=== PATIENT | female | born 1965 | race Caucasian/White ===

== ENCOUNTER → 2017-07-25 12:36 | Outpatient (CLI) | payer BC ==
[2017-07-25 13:51] LABS: T4 THYROXIN - FREE 0.86 ng/dL (0.76-1.46); THYROID STIMULATING HORMONE 3.1 uIU/mL (0.36-3.74)
== END | disposition home or self-care (01) ==
LOC: D.LAB 12:36
PROVIDERS: Obstetrics & Gynecology Gynecology
DX: R53.83 Other fatigue (principal); N95.1 Menopausal and female climacteric states

== ENCOUNTER 2017-11-08 09:14 | Observation (INO) | payer BC ==
[~2017-11-08] VITALS: Ht 157.5 cm; Wt 54.4 kg
[2017-11-08 09:48] LABS: BASOPHILS 0.2 % (0-2); EOSINOPHILS 0.9 % (0-7); HEMATOCRIT 40.7 % (36.0-48.0); HEMOGLOBIN 13.9 g/dL (12-16); IMMATURE GRANULOCYTES 0.3 % (0-5); LYMPHOCYTES 12.6 % (15-50); MCH 31.3 pg (26.0-34.0); MCHC 34.2 g/dL (31.0-37.0); MCV 91.7 fL (80.0-100.0); MEAN PLATELET VOLUME 10.3 fL (7.4-10.4); PLATELET COUNT 166 10x3/uL (130-400); RBC 4.44 10x6/uL (4.00-5.40); RDW 12.1 % (11.5-14.5); WBC 10.9 10x3/uL (4.8-10.8)
[2017-11-08 10:08] LABS: ALBUMIN 3.7 g/dL (3.4-5.0); ALKALINE PHOSPHATASE 61 U/L (46-116); ALT (SGPT) 21 U/L (10-68); CALC OSMOLALITY 276 mosm/kg (275-300); CALCIUM 9.2 mg/dL (8.5-10.1); CARBON DIOXIDE 28.6 mmol/L (21.0-32.0); CHLORIDE - SERUM 102 mmol/L (98-107); CREATININE - SERUM 0.8 mg/dL (0.6-1.3); GLUCOSE 111 mg/dL (74-106); POTASSIUM - SERUM 3.1 mmol/L (3.5-5.1); SODIUM 139 mmol/L (136-145); UREA NITROGEN 7 mg/dL (7-18); eGFR NON AFRICAN AMERICAN 80 mL/min (90-120)
[2017-11-08 10:59] LABS: APPEARANCE HAZY (CLEAR); BILIRUBIN NEGATIVE (NEGATIVE); COLOR YELLOW (YELLOW); GLUCOSE NEGATIVE (NEGATIVE); KETONE MODERATE mg/dL (NEGATIVE); NITRITE NEGATIVE (NEGATIVE); PROTEIN NEGATIVE (NEGATIVE); UROBILINOGEN NORMAL (NORMAL)
[2017-11-08 15:22] LABS: GLUCOSE - CSF 64 MG/DL (40-75); PROTEIN - CSF 39 MG/DL (12-60)
[2017-11-08 15:27] LABS: APPEARANCE - CSF CLEAR; RBC - CSF 0 cmm (0-0)
[2017-11-08 20:00] VITALS: BP 117/68
[2017-11-09 02:20] VITALS: BP 101/57
[2017-11-09 02:32] VITALS: BMI 22.0
[2017-11-09 05:03] VITALS: BP 108/63
[2017-11-09 06:27] LABS: BASOPHILS 0.1 % (0-2); EOSINOPHILS 1.1 % (0-7); HEMATOCRIT 35.3 % (36.0-48.0); HEMOGLOBIN 11.6 g/dL (12-16); IMMATURE GRANULOCYTES 0.1 % (0-5); LYMPHOCYTES 16.4 % (15-50); MCH 30.1 pg (26.0-34.0); MCHC 32.9 g/dL (31.0-37.0); MCV 91.7 fL (80.0-100.0); MEAN PLATELET VOLUME 9.6 fL (7.4-10.4); MONOCYTES 9.6 % (2-11); NEUTROPHILS 72.7 % (40-80); PLATELET COUNT 195 10x3/uL (130-400); RBC 3.85 10x6/uL (4.00-5.40); RDW 12.1 % (11.5-14.5)
[2017-11-09 06:32] LABS: WBC 7.1 10x3/uL (4.8-10.8)
[2017-11-09 06:57] LABS: ALKALINE PHOSPHATASE 42 U/L (46-116); BILIRUBIN - TOTAL 0.41 mg/dL (0.2-1.3); CALC OSMOLALITY 282 mosm/kg (275-300); CALCIUM 7.7 mg/dL (8.5-10.1); CARBON DIOXIDE 25.4 mmol/L (21.0-32.0); CHLORIDE - SERUM 107 mmol/L (98-107); CREATININE - SERUM 0.6 mg/dL (0.6-1.3); GLUCOSE 97 mg/dL (74-106); SODIUM 143 mmol/L (136-145); UREA NITROGEN 6 mg/dL (7-18); eGFR NON AFRICAN AMERICAN > 90 mL/min (90-120)
[2017-11-09 07:01] LABS: ALBUMIN 2.5 g/dL (3.4-5.0); ALT (SGPT) 12 U/L (10-68); PROTEIN - SERUM 5.2 g/dL (6.4-8.2)
[2017-11-09 08:02] VITALS: BP 109/65
[2017-11-09 12:00] VITALS: BP 113/72
[2017-11-09 12:59] VITALS: Ht 157.5 cm; Wt 54.4 kg
[2017-11-09 13:22] LABS: % SATURATION 7 % (15-55); IRON 15 ug/dl (35-150); TOTAL IRON BIND CAPACITY 193 ug/dl (260-445); UNSAT IRON BIND CAPACITY 178 ug/dl (150-375)
[2017-11-09 16:25] LABS: T4 THYROXIN - FREE 1.03 ng/dL (0.76-1.46); THYROID STIMULATING HORMONE 1.5 uIU/mL (0.36-3.74)
[2017-11-09 16:35] VITALS: BP 112/73
[2017-11-09 20:30] VITALS: BP 117/68
[2017-11-10 00:52] VITALS: BP 124/74
[2017-11-10 03:58] VITALS: BP 95/56
[2017-11-10 08:29] VITALS: BP 118/70
[2017-11-10] MEDS ORDERED: FLAGYL500 MG PO (12:12)
[2017-11-10] MEDS ORDERED: LEVAQUIN500 MG PO (12:12)
[2017-11-10 12:51] VITALS: BP 120/72
[2017-11-11 08:18] LABS: FOLATE (FOLIC ACID) - SERUM 14.5 ng/mL (>3.0)
[2017-11-11 11:17] LABS: ANA REFLEX - DIRECT Negative (Negative)
[2017-11-14 14:14] LABS: ANTIGLIADIN IGA 1 units (0-19); ANTIGLIADIN IGG 1 units (0-19)
== END 2017-11-10 14:34 | disposition home or self-care (01) ==
LOC: D.ER 09:14 → D.MS 18:36 → D.EDHOLD 18:36 → D.MS 18:36 → OBSVTIME 19:16 → D.MS 11-10 14:34
PROVIDERS: Family Medicine; Internal Medicine Gastroenterology; Internal Medicine Nephrology
DX: R19.7 Diarrhea, unspecified (principal); R10.9 Unspecified abdominal pain; D64.9 Anemia, unspecified; E87.6 Hypokalemia

== ENCOUNTER → 2017-12-23 08:49 | Outpatient (CLI) | payer BC ==
[2017-11-09 12:59] VITALS: BMI 21.9
[~2017-12-23 08:49] MED LIST: FLAGYL500 MG PO; LEVAQUIN500 MG PO
[2017-12-23 09:30] LABS: BASOPHILS 0.6 % (0-2); EOSINOPHILS 1.7 % (0-7); HEMOGLOBIN 13.9 g/dL (12-16); LYMPHOCYTES 40.8 % (15-50); MCH 31.1 pg (26.0-34.0); MCHC 33.1 g/dL (31.0-37.0); MEAN PLATELET VOLUME 10.2 fL (7.4-10.4); MONOCYTES 6.2 % (2-11); NEUTROPHILS 50.7 % (40-80); PLATELET COUNT 224 10x3/uL (130-400); RBC 4.47 10x6/uL (4.00-5.40); RDW 13.4 % (11.5-14.5); WBC 4.7 10x3/uL (4.8-10.8)
[2017-12-23 09:49] LABS: % SATURATION 27 % (15-55); IRON 91 ug/dl (35-150); TOTAL IRON BIND CAPACITY 331 ug/dl (260-445); UNSAT IRON BIND CAPACITY 240 ug/dl (150-375)
[2017-12-24 08:17] LABS: FOLATE (FOLIC ACID) - SERUM >20.0 ng/mL (>3.0)
== END | disposition home or self-care (01) ==
LOC: D.LAB 08:49
PROVIDERS: Internal Medicine Gastroenterology
DX: D64.9 Anemia, unspecified (principal)

== ENCOUNTER → 2019-04-11 15:46 | Outpatient (CLI) | payer BC ==
[2017-11-09 12:59] VITALS: BMI 21.9
== END | disposition home or self-care (01) ==
LOC: D.MRI 15:00
PROVIDERS: ATTEND Orthopaedic Surgery
DX: M25.561 Pain in right knee (principal)